=== PATIENT | male | born 1950 | race Caucasian/White ===

== ENCOUNTER 2023-10-19 10:10 | Outpatient (AMB) | payer OTHER, SELFPAY ==
--- NOTE | 2023-10-19 10:25 | AM.OFFWIN_ITS ---
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 He says he was rubbing it for a few days but it turned red and is here to have it evaluated. He states it is not painful, it has not itchy and he has no changes in his vision. He states it is just extremely red. PFSH Social History Patient Tobacco Use Status: Current everyday Tobacco user Review of Systems Const All systems reviewed & are unremarkable except as noted in HPI and below Physical Exam Vital Signs: Last Vital Signs Temp 97.8 F 10/19/23 10:27 Pulse 67 10/19/23 10:27 BP 104/60 10/19/23 10:27 Pulse Ox 97 10/19/23 10:27 Oxygen Delivery Method Room Air 10/19/23 10:27 BMI result Body Mass Index 21.5 Const General: cooperative, healthy appearing, comfortable, no acute distress and well developed Orientation/consciousness: patient oriented x3 Limitations: no limitations HEENT Head: Yes normal to inspection Eyes General: appearance normal, both eyes and all related structures Neck Neck: Yes normal visual inspection and Yes full ROM Skin General skin exam: no rashes or lesions noted Neuro General: patient oriented x3 Extrem General: Yes normal to inspection Assessment & Plan Assessment & Plan (1) Hyphema of left eye: Code(s): H21.02 - Hyphema, left eye Plan: No corneal abrasion noted however I will treat because I can not see the entire eye. Patient already has follow-up scheduled with his eye doctor next week. Gave red flag warning signs and when to seek emergent medical care. (2) Chemosis of left conjunctiva: Code(s): H11.422 - Conjunctival edema, left eye Plan: See above Plan See above Medications: New erythromycin apply to left eye 0.5 inches ophthalmic (eye) QID 3.5 grams 0RF Coding Level of Care Code Est Pt Level 4 (52408) Diagnoses Hyphema of left eye H21.02 Chemosis of left conjunctiva H11.422
[2023-10-19 10:27] VITALS: BP 104/60; PULSE 67; TEMP 36.6; O2SAT 97; BMI 21.5
== END 2023-10-19 10:46 | disposition home or self-care (01) ==
PROVIDERS: PCP Family Medicine; Visit Provider Physician Assistant
DX: H21.02 Hyphema, left eye (principal); H11.422 Conjunctival edema, left eye
CPT/HCPCS: 99214